=== PATIENT | female | born 1950 | race Two or more races ===

== ENCOUNTER 2016-10-28 08:46 | Outpatient (CLI) | payer MEDICARE, OTHER ==
[~2016-10-28 08:46] MED LIST: BLOOD PRESSURE MED ORAL; CHOLESTEROL MED ORAL; VITAMIN D250000 UNI1 ORAL; [UNRECOGNIZED DRUG - REMARK] ORAL
[2016-10-28 09:15] VITALS: BP 100/57
--- NOTE | 2016-10-28 09:43 | GI Progress Note ---
Assessment/Plan Problems: (1) Encounter for diagnostic endoscopy ICD Codes: Z01.818 - Encounter for other preprocedural examination SNOMED: 230822453, 358868012 (2) Anemia ICD Codes: D64.9 - Anemia SNOMED: 821220648 (3) GERD (gastroesophageal reflux disease) ICD Codes: K21.9 - GERD (gastroesophageal reflux disease) SNOMED: 118734882 (4) HP positive Status: stable Status Narrative Discussed with Dr. Zuluaga. Assessment/Plan SBCE today. RTC tomorrow fu imaging results Subjective Subjective here today for SBCE Objective Last 24 Hour Vital Signs Date Time Temp Pulse Resp B/P Pulse Ox O2 Delivery O2 Flow Rate FiO2 10/28/16 09:15 98.0 72 16 100/57 General Appearance: no apparent distress, alert Cardiovascular: normal rate Respiratory/Chest: normal breath sounds Abdominal Exam: normal bowel sounds, non tender, soft Extremities: normal range of motion Rosy Dash N.P. October 28, 2016 09:43
== END 2016-10-28 09:45 | disposition home or self-care (01) ==
LOC: PAN 08:46
DX: Z01.818 Encounter for other preprocedural examination (principal); D64.9 Anemia, unspecified; K21.9 Gastro-esophageal reflux disease without esophagitis; R87.810 Cervical high risk human papillomavirus (HPV) DNA test positive
CPT/HCPCS: 91110; G0463; 99211